=== PATIENT | female | born 1990 | race Caucasian/White ===

== ENCOUNTER 2017-07-24 12:10 | Emergency (ER) | payer OTHER ==
[~2017-07-24] VITALS: Ht 160 cm; Wt 72.2 kg
[2017-07-24 12:24] VITALS: Ht 160 cm; Wt 72.2 kg
[2017-07-24] MEDS ORDERED: SOD CHLORIDE 0.9% 1,000 ML IV STA (12:48)
[2017-07-24] MEDS ORDERED: ONDANSETRON 4 MG INJ IV STA (12:48)
[2017-07-24] MEDS ORDERED: morphine 4 MG/ML VIAL IV STA (12:55)
--- NOTE | 2017-07-24 12:57 | ERD ---
ER Documentation Chief Complaint Chief Complaint ap, n/v/d x 1 month; sent from [facility] 27-year-old female history of asthma and anxiety presents with one-month history of abdominal pain and diarrhea. The patient reports up to 5 episodes of nonbloody non-mucousy stools, with diffuse abdominal pain. She has been treated for multiple urinary tract infections, Cipro for times recently and was seen at the urgent care today who referred her to emergency department due to her abdominal pain. She has not had any fevers or chills. She denies recent travel. ROS All systems reviewed and are negative except as per history of present illness. Medications Home Meds Active Scripts Ondansetron Hcl* (Zofran*) 4 Mg Tab, 4 MG PO Q4H Y for NAUSEA AND OR VOMITING, # 15 TAB Prov:MOOKIE GALLAGHER PA-C 07/24/17 Dicyclomine Hcl* (Bentyl*) 10 Mg Capsule, 10 MG PO QID, #20 CAP Prov:MOOKIE GALLAGHER PA-C 07/24/17 Metronidazole* (Flagyl*) 500 Mg Tablet, 500 MG PO TID for 10 Days, TAB Prov:MOOKIE GALLAGHER PA-C 07/24/17 Allergies Allergies: Coded Allergies: Penicillins (Verified Allergy, Unknown, 07/24/17) diphenhydramine (Verified Allergy, Unknown, 07/24/17) PMhx/Soc History of Surgery: Yes (pleomonrphic adenoma 2013) Hx Respiratory Disorders: Yes (Asthma) Hx Miscellaneous Medical Probl: Yes (Anxiety) Physical Exam Vitals Vital Signs Date Time Temp Pulse Resp B/P Pulse Ox O2 Delivery O2 Flow Rate FiO2 07/24/17 12:24 98.4 72 16 111/70 99 Physical Exam General: Well-developed, well-nourished. The patient appears in no acute distress. HEENT: Head is normocephalic, atraumatic. No scleral icterus. Neck: Supple. Nontender. Lungs: Clear to auscultation. Normal air movement. Heart: Regular rate and rhythm. S1 and S2 are normal. No murmurs, gallops, or rubs. Abdomen: Soft, tender to palpation diffusely, no hepatosplenomegaly, no masses nondistended. Bowel sounds are normoactive. Extremities: No clubbing or cyanosis. Normal pulses. Moving extremities x 4. No weakness. Neurologic: Alert and oriented 3. No focal deficits. Skin: Normal turgor. No rash or lesions. Result Diagram: 07/24/17 1320 07/24/17 1320 Results 24 hrs Laboratory Tests Test 07/24/17 13:09 07/24/17 13:20 Urine Color YELLOW Urine Clarity CLEAR Urine pH 7.0 Urine Specific [place] 1.024 Urine Ketones NEGATIVEmg/dL Urine Nitrite NEGATIVEmg/dL Urine Bilirubin NEGATIVEmg/dL Urine Urobilinogen NEGATIVEmg/dL Urine Leukocyte Esterase NEGATIVELeu/ul Urine Microscopic RBC 13/HPF Urine Microscopic WBC 1/HPF Urine Squamous Epithelial Cells FEW/HPF Urine Bacteria FEW/HPF Urine Mucus FEW/HPF Urine Hemoglobin 1+mg/dL Urine Glucose NEGATIVEmg/dL Urine Total Protein NEGATIVEmg/dl White Blood Count 8.010^3/ul Red Blood Count 4.5710^6/ul Hemoglobin 13.2g/dl Hematocrit 39.9% Mean Corpuscular Volume 87.3fl Mean Corpuscular Hemoglobin 28.9pg Mean Corpuscular Hemoglobin Concent 33.1g/dl Red Cell Distribution Width 13.0% Platelet Count 15254^3/UL Mean Platelet Volume 9.9fl Neutrophils % 63.9% Lymphocytes % 29.6% Monocytes % 4.7% Eosinophils % 1.2% Basophils % 0.4% Nucleated Red Blood Cells % 0.0/100WBC Neutrophils # 5.110^3/ul Lymphocytes # 2.410^3/ul Monocytes # 0.410^3/ul Eosinophils # 0.110^3/ul Basophils # 0.010^3/ul Nucleated Red Blood Cells # 0.010^3/ul Sodium Level 142mmol/L Potassium Level 4.0mmol/L Chloride Level 104mmol/L Carbon Dioxide Level 27mmol/L Anion Gap 15 Blood Urea Nitrogen 12mg/dl Creatinine 0.59mg/dl Glucose Level 91mg/dl Calcium Level 9.0mg/dl Total Bilirubin 0.2mg/dl Direct Bilirubin 0.00mg/dl Indirect Bilirubin 0.2mg/dl Aspartate Amino Transf (AST/SGOT) 22IU/L Alanine Aminotransferase (ALT/SGPT) 35IU/L Alkaline Phosphatase 85IU/L Total Protein 8.4g/dl Albumin 4.6g/dl Globulin 3.80g/dl Albumin/Globulin Ratio 1.21 Lipase 87U/L Serum HCG, Qualitative NEGATIVE Current Medications Medications (Trade) Dose Ordered Sig/Tez Route PRN Reason Start Time Stop Time Status Last Admin Dose Admin Sodium Chloride (NS) 1,000 ml @ 1,000 mls/hr Q1H STAT IV 07/24/17 12:48 07/24/17 13:47 DC 07/24/17 13:32 Ondansetron HCl (Zofran Inj) 4 mg ONCE STAT IV 07/24/17 12:48 07/24/17 12:51 DC 07/24/17 13:37 Morphine Sulfate (morphine) 4 mg ONCE STAT IV 07/24/17 12:55 07/24/17 12:56 DC 07/24/17 13:37 IV Flush 10 ml 10 ml STK-MED ONCE .ROUTE 07/24/17 14:35 07/24/17 14:36 DC 07/24/17 14:55 Sodium Chloride (NS) 100 ml @ ud STK-MED ONCE .ROUTE 07/24/17 14:35 07/24/17 14:36 DC 07/24/17 14:55 Iohexol (Omnipaque 300mg/ ml) 150 ml STK-MED ONCE .ROUTE 07/24/17 14:35 07/24/17 14:36 DC 07/24/17 14:56 DIAGNOSTIC IMAGING REPORT Patient: EVITA VANG : 1990 Age: 27 Sex: F MR #: [id number] DOS: 07/24/17 1248 Ordering MD: MOOKEI GALLAGHER PA-C Location: [facility] Room/Bed: PROCEDURE: CT Abdomen and pelvis with contrast. CLINICAL INDICATION: diarrhea for 1 month TECHNIQUE: CT scan of the abdomen and pelvis with contrast was performed on a multidetector high-resolution CT scan. The patient was scanned following the uncomplicated intravenous administration of 90 ml Omnipaque-300. Coronal and sagittal reformatted images were obtained from the axial source images. Standard CT of the abdomen pelvis with contrast protocols were performed. The total exam CTDI equals 11.18 mGy and the total exam DLP equals 644.46 mGy- cm. One or more of the following dose reduction techniques were used: - Automated exposure control. - Adjustment of the mA and/or kV according to patient size. Use of iterative reconstruction technique. COMPARISON: None. FINDINGS: A definite appendix is not visualized however there is no CT evidence of appendicitis. The stomach, small bowel and large bowel are unremarkable. Negative for intra-abdominal free air, free fluid, abscesses or lymphadenopathy. The kidneys are normal in size without calcified renal calculi, hydronephrosis or intra renal masses bilaterally. Urinary bladder is partially contracted but otherwise unremarkable. Anteverted anteflexed uterus with multiple Nabothian cysts. There are low densities in both adnexa is slightly more prominent on the right consistent with ovarian cyst. A pelvic ultrasound may be helpful for further evaluation. The liver spleen pancreas adrenal glands and gallbladder are unremarkable. No evidence of biliary ductal dilation. Abdominal pelvic wall unremarkable. Aorta unremarkable. Lung bases unremarkable. Osseous structures are unremarkable without acute osseous findings are osteoblastic/osteolytic lesions. IMPRESSION: 1. No evidence of gastrointestinal disease. 2. No evidence of calcified urinary calculi or obstructive uropathy. 3. Bilateral adnexal low-density is more prominent on the right likely ovarian cysts. A pelvic ultrasound may be helpful for further evaluation. 4. Negative for intra-abdominal free air, free fluid, abscesses or lymphadenopathy. RPTAT:AAJJ Physician Keesha Date Time Electronically viewed and signed by Physician Keesha on 07/24/2017 15:18 BM/ CC: MOOKIE GALLAGHER PA-C Procedures/[facility] ER course: Patient an IV established, blood and urine obtained, she was given morphine 4 mg , Zofran 4 mg IV with fluid bolus normal saline 1 L. Medical decision makin-year-old female presents with one-month history of diarrhea and abdominal pain differential diagnosis includes traveler's diarrhea , viral gastroenteritis, C. difficile colitis, diverticulitis, intra-abdominal abscess, UTI, pyelonephritis, , can include ectopic tubo- ovarian abscess. The patient has been repeatedly treated for urinary tract infection told that she had blood in her urine analysis and was given Cipro 3 or 4 times, there is been given a prescription for Cipro today by the urgent care. Given the repeated antibiotic use and history of diarrhea the patient will be covered for possible C. difficile colitis. She will be given Flagyl. Stool was also sent for cultures and C. difficile. She is to recheck with her primary care doctor in 1-[address] of abdomen pelvis does not show evidence of abdominal perforation, intra-abdominal abscess. Departure Diagnosis: Primary Impression: Diarrhea Condition: Good MOOKIE GALLAGHER PA-C Jul 24, 2017 12:57
[2017-07-24] MEDS ORDERED: SOD CHLORIDE 0.9% 100 ML ONE (14:35)
[2017-07-24] MEDS ORDERED: IOHEXOL 300MG/ML 150 ML BTL ONE (14:35)
--- NOTE | 2017-07-24 15:19 | RADRPT ---
PROCEDURE: CT Abdomen and pelvis with contrast. CLINICAL INDICATION: diarrhea for 1 month TECHNIQUE: CT scan of the abdomen and pelvis with contrast was performed on a multidetector high-r esolution CT scan. The patient was scanned following the uncomplicated intravenous administration o f 90 ml Omnipaque-300. Coronal and sagittal reformatted images were obtained from the axial source images. Standard CT of the abdomen pelvis with contrast protocols were performed. The total exam CTDI equals 11.18 mGy and the total exam DLP equals 644.46 mGy-cm. One or more of the following dose reduction techniques were used: - Automated exposure control. - Adjustment of the mA and/or kV according to patient size. Use of iterative reconstruction technique. COMPARISON: None. FINDINGS: A definite appendix is not visualized however there is no CT evidence of appendicitis. The stomach, small bowel and large bowel are unremarkable. Negative for intra-abdominal free air, free fluid, abscesses or lymphadenopathy. The kidneys are normal in size without calcified renal calculi, hydronephrosis or intra renal masses bilaterally. Urinary bladder is partially contracted but otherwise unremarkable. Anteverted anteflexed uterus with multiple Nabothian cysts. There are low densities in both adnexa i s slightly more prominent on the right consistent with ovarian cyst. A pelvic ultrasound may be help ful for further evaluation. The liver spleen pancreas adrenal glands and gallbladder are unremarkable. No evidence of biliary du ctal dilation. Abdominal pelvic wall unremarkable. Aorta unremarkable. Lung bases unremarkable. Osseous structures are unremarkable without acute osseous findings are osteoblastic/osteolytic lesio ns. IMPRESSION: 1. No evidence of gastrointestinal disease. 2. No evidence of calcified urinary calculi or obstructive uropathy. 3. Bilateral adnexal low-density is more prominent on the right likely ovarian cysts. A pelvic ultr asound may be helpful for further evaluation. 4. Negative for intra-abdominal free air, free fluid, abscesses or lymphadenopathy. RPTAT:AAJJ Physician Keesha Date Time Electronically viewed and signed by Physician Keesha on 07/24/2017 15:18 BM/
[2017-07-24] MEDS ORDERED: METR500T PO (15:25)
[2017-07-24] MEDS ORDERED: ONDA-43 PO (15:25)
[2017-07-24] MEDS ORDERED: DICY10CA60 PO (15:25)
[2017-07-24 15:48] VITALS: BP 120/75; PULSE 74; RESP 16; TEMP 98.4
== END 2017-07-24 15:53 | disposition home or self-care (01) ==
LOC: FTE 12:10
DX: R10.84 Generalized abdominal pain (principal); R19.7 Diarrhea, unspecified; J45.909 Unspecified asthma, uncomplicated; R10.2 Pelvic and perineal pain
CPT/HCPCS: 36415; 74177; 80053; 81001; 83690; 84703; 85025; 87045; 87075; 96374; 96375; J2270; J2405; J7030; Q9967; Z7502; Z7610